=== PATIENT | female | born 1950 | race Caucasian/White ===

== ENCOUNTER 2017-10-24 17:13 | Emergency (ER) | payer OTHER ==
[2017-10-24 17:22] VITALS: BP 144/82; TEMP 97.4; BMI 24.1
--- NOTE | 2017-10-24 18:27 | ED.PDOC ---
General ED Provider: Dr. INOCENCIA ADAN Chief Complaint: Hand Pain/Injury Stated Complaint: Contusion/abrasion L hand; about to milk a cow and had hand scraped in barn Time Seen by Physician: 18:20 Mode of Arrival: Walk-In Information Source: Patient Exam Limitations: No limitations, Clinical condition Primary Care Provider: VEAN DIETZ Nursing and Triage Documentation Reviewed and Agree: Yes Review of Systems - Review Of Systems Constitutional: Reports: No symptoms Skin: Reports: Lesions (Partial thickness abrasion L hand dorsum) All Other Systems: Reviewed and Negative Past Medical History - Past Medical History Previously Healthy: Yes Endocrine: Reports: None Cardiovascular: Reports: None Respiratory: Reports: None Hematological: Reports: None Gastrointestinal: Reports: None Genitourinary: Reports: None Neuro/Psych: Reports: None Musculoskeletal: Reports: None Cancer: Reports: None Last Menstrual Period: post-menopausal - Surgical History General Surgical History: Reports: Unknown - Family History Family History: Reports: Unknown - Social History Smoking Status: Never smoker Hx Substance Use: No Alcohol Screening: None - Immunizations Tetanus Shot up to Date: No (pt. wants tetanus shot) Physical Exam - Physical Exam Appearance: Well-appearing Pain Distress: Mild Musculoskeletal: Normal strength, ROM intact, No edema Skin: Warm (Abrasion; dorsum L hand), Dry, Normal color Interpretation - Radiology Interpretation Radiology Interpretation By: ED Physician Exam Interpreted: Portable CXR Xray Comments: No acute changes Critical Care Note - Critical Care Note Total Time (mins): 10 Course - Course Orders, Labs, Meds: Orders Category Date Time Status Tetanus, Diphtheria Tox,Adult [Tetanus Diphtheria MEDS 10/24/17 18:26 Discontinued Toxoids] 0.5 ml IM .ONCE ONE Medications Discontinued Medications Generic Name Dose Route Start Last Admin Trade Name Freq PRN Reason Stop Dose Admin Tetanus/Diphtheria Toxoids 0.5 ml 10/24/17 18:26 10/24/17 18:46 Tetanus Diphtheria Toxoids IM 10/24/17 18:27 0.5 ml .ONCE ONE Administration Vital Signs: Temp Pulse Resp BP Pulse Ox 10/24/17 17:14 97.4 F L 77 20 144/82 H 98 Departure - Departure Time of Disposition: 19:00 Disposition: HOME SELF-CARE Discharge Problem: Abrasion hand Qualifiers: Encounter type: initial encounter Laterality: left Qualified Code(s): S60.512A - Abrasion of left hand, initial encounter Instructions: Abrasion (ED) Condition: Good Pt referred to PMD for follow-up: Yes (Call for appointment) Additional Instructions: Follow up with primary care; watch for signs of infection. Follow up with primary care provider as needed.
[2017-10-24] MEDS: TETANUS DIPHTHERIA TOXOIDS IM ONE (18:46)
== END 2017-10-24 19:12 | disposition home or self-care (01) ==
LOC: ED 17:13
DX: S60.222A Contusion of left hand, initial encounter (principal); S60.512A Abrasion of left hand, initial encounter; W22.8XXA Striking against or struck by other objects, initial encounter
CPT/HCPCS: 90471; 90714; 99282

== ENCOUNTER 2018-05-28 09:41 | Emergency (ER) ==
[2018-05-28 09:41] VITALS: BMI 24.1
[2018-05-28 09:43] VITALS: BP 161/75; TEMP 97.7
--- NOTE | 2018-05-28 10:02 | ED.PDOC ---
General ED Provider: Dr. INOCENCIA ADAN Chief Complaint: Fall Stated Complaint: Fell; hit L elbow and L knee Time Seen by Physician: 09:55 Mode of Arrival: Walk-In Information Source: Patient Exam Limitations: No limitations Primary Care Provider: EVAN DIETZ Nursing and Triage Documentation Reviewed and Agree: Yes Does patient meet sepsis criteria?: No System Inflammatory Response Syndrome: Not Applicable Sepsis Protocol: For patient's 13 years and over: Temp is 96.8 and below OR 101 and greater Pulse >90 BPM Resp >20/minute Acutely Altered Mental Status Are patient's symptoms suggestive of a new infection, such as: -Pneumonia -Skin, Soft Tissue -Endocarditis -UTI -Bone, Joint Infection -Implantable Device -Acute Abdominal Infection -Wound Infection -Meningitis -Blood Stream Catheter Infection -Unknown Review of Systems - Review Of Systems Constitutional: Reports: No symptoms Eyes: Reports: No symptoms Respiratory: Reports: No symptoms Cardiac: Reports: No symptoms Musculoskeletal: Reports: Joint pain (L elbow; L knee) Skin: Reports: Other (Small avulsion of tissue L elbow) Neurological: Reports: No symptoms All Other Systems: Reviewed and Negative Past Medical History - Past Medical History Previously Healthy: Yes Endocrine: Reports: None Cardiovascular: Reports: None Respiratory: Reports: None Hematological: Reports: None Gastrointestinal: Reports: None Genitourinary: Reports: None Neuro/Psych: Reports: None Musculoskeletal: Reports: None Cancer: Reports: None Last Menstrual Period: none - Surgical History General Surgical History: Reports: Unknown - Family History Family History: Reports: Unknown - Social History Smoking Status: Never smoker Hx Substance Use: No Alcohol Screening: None - Immunizations Tetanus Shot up to Date: Yes Physical Exam - Physical Exam Appearance: Well-appearing Pain Distress: Mild Neck: Supple Respiratory: Airway patent, Breath sounds clear, Respirations nonlabored Cardiovascular: RRR, Pulses normal Musculoskeletal: Normal strength, ROM intact Skin: Warm, Dry Neurological: Sensation intact, Motor intact, Alert, Oriented Psychiatric: Affect appropriate, Mood appropriate Interpretation - Radiology Interpretation Radiology Interpretation By: Radiologist Radiology Results: Negative (L knee) Radiology Interpretation By: Radiologist Radiology Results: Positive (No FX/Dislocation; small FBs) Procedures - Laceration/Wound Repair No standard instances Wound Description: Flap Wound Length (cm): 5 Wound Width: 2mm Wound Depth: 3 mm Wound Explored: Foreign body (Removed by RN with clensing) Wound Irrigated: Yes Wound Prep: Betadine Wound Repaired With: Steri-strips (By RN; checked by MD) Re-Evaluation - Re-Evaluation Time of Re-Evaluation: 10:45 (Re eval/FB shown on X Ray; removed by RN with further clensing) Status: Unchanged (No distress) Vital Signs Stable: Yes Pain Level: Mild Appearance: NAD Skin: Warm and Dry Neuro: Alert and Oriented X3 Critical Care Note - Critical Care Note Total Time (mins): 20 Course - Course Orders, Labs, Meds: Orders Category Date Time Status Wound [ED WOUND CARE] .ONCE EMERGENCY 05/28/18 11:04 Active ELBOW, LEFT MIN 3 VIEWS Stat RADS 05/28/18 10:04 Completed KNEE, LEFT 4 VIEWS Stat RADS 05/28/18 10:05 Completed Vital Signs: Temp Pulse Resp BP Pulse Ox 05/28/18 09:41 97.7 F 78 20 161/75 H 98 Departure - Departure Time of Disposition: 11:27 Disposition: HOME SELF-CARE Discharge Problem: Laceration of left elbow Contusion of left knee Qualifiers: Encounter type: initial encounter Qualified Code(s): S80.02XA - Contusion of left knee, initial encounter Instructions: Laceration (ED), Knee Pain (ED) Condition: Good Pt referred to PMD for follow-up: Yes (Follow up with primary care) IPMP verified?: No (No narcotic prescription indicated) Additional Instructions: Dressing in place 2 days; minimize use of left arm (minimal full bending of L elbow) - three days. Watch for signs of infection. Take antibiotic as prescribed. Prescriptions: Cephalexin [Keflex] 500 mg PO Q8HR #15 capsule Allergies/Adverse Reactions: Allergies Sulfa (Sulfonamide Antibiotics) Adverse Reaction (Verified 05/28/18 09:44) steroid Adverse Reaction (Uncoded 05/28/18 09:44) Home Medications: Ambulatory Orders Cephalexin [Keflex] 500 mg PO Q8HR #15 capsule 05/28/18 Cholecalciferol (Vitamin D3) [Vitamin D] 1,000 unit PO DAILY 05/28/18 Paroxetine HCl [Paxil] 10 mg PO DAILY 05/28/18 Disposition Discussed With: Patient
--- NOTE | 2018-05-28 10:52 | DI ---
EXAM: Radiographs, left knee HISTORY: Left knee pain. COMPARISON: None available. TECHNIQUE: Four views. FINDINGS: Bone mineralization is normal. There is no fracture or dislocation. The joint spaces are maintained. No focal soft tissue abnormality is seen. IMPRESSION: No fracture or dislocation.
--- NOTE | 2018-05-28 10:53 | DI ---
EXAM: LEFT ELBOW HISTORY: Fall, trauma FINDINGS / IMPRESSION: Left elbow three-view. There is no fracture or dislocation. A few specks of density in the posterior soft tissues of the elbow are consistent with a tiny foreign bodies.
== END 2018-05-28 11:35 | disposition home or self-care (01) ==
LOC: ED 09:41
DX: S51.022A Laceration with foreign body of left elbow, initial encounter (principal); S80.02XA Contusion of left knee, initial encounter; W19.XXXA Unspecified fall, initial encounter
CPT/HCPCS: 99283

== ENCOUNTER 2018-09-09 10:28 | Outpatient (CLI) ==
--- NOTE | 2018-09-09 11:45 | DI ---
EXAM: Two views of the chest. History: Cough. Findings: Heart size is normal. No focal consolidation. No appreciable pleural fluid and no pneumo thorax. No acute osseous abnormalities. Impression: No acute cardiopulmonary process
== END 2018-09-09 10:29 | disposition home or self-care (01) ==
LOC: RAD 10:28
PROVIDERS: ATTEND Internal Medicine
DX: R05 Cough (principal)